=== PATIENT | female | born 1935 | race Caucasian/White ===

== ENCOUNTER → 2017-03-01 | Outpatient (CLI) | payer OTHER ==
--- NOTE | ~2017-03-01 | MY11 ---
[facility] A Service of [facility] RADIOLOGY TEXT RESULTS PATIENT: KATARZYNA MARTINEZ LOCATION: [facility] : 37 UNIT #: [id number] AGE: [address]: Elieser Hurt MD SEX: F ORDER DR: [id number] [facility] [address]. [place], [place] [address] [id number] O MR#: [id number] Acc #: [id number] NAME: KATARZYNA MARTINEZ : 1935 SEX: F STUDY DATE/TIME: 03/01/2017 12:21 UNIT: [facility] ROOM: STUDY DESCRIPTION: MY Mammogram Screening Dig Sunil Attending Physician: Elieser Hurt M.D. Ordering Physician: Elieser Hurt M.D. Primary Care Physician: Elieser Hurt M.D. MEDICAL IMAGING REPORT This report is preliminary unless electronic signature is present EXAM Bilateral digital screening mammogram with CAD 03/01/2017 HISTORY Family history of breast cancer in her mother. No personal history of breast cancer. No current complaints. COMPARISON Bilateral screening mammogram 02/27/2016, 10/18/2014 and 09/14/2012. Right breast diagnostic mammogram 11/16/2014. FINDINGS CC and MLO views were obtained of each breast utilizing digital technique and reviewed with a FDA-approved CAD device. Scattered fibroglandular densities are present bilaterally. Round markers placed over each breast denoting skin lesions. Fibroglandular pattern appears stable. No new or suspicious nodule is seen. No architectural distortion. No suspicious clustered microcalcifications. IMPRESSION 1. BIRADS 1. Negative screening mammogram. Routine screening mammogram is recommended in 1 year. BIRADS: 1 Negative. Patients over the age of 40 are entered into a reminder system with target due date for the next mammogram. A result letter will also be sent to the patient. Dictated by... Ritu Milton M.D. [facility] A Service [facility] RADIOLOGY TEXT RESULTS PATIENT: KATARZYNA MARTINEZ LOCATION: [facility] : 37 UNIT #: [id number] AGE: [address]: Elieser Hurt MD SEX: F ORDER DR: THIS IS AN ELECTRONICALLY VERIFIED REPORT Ritu Milton M.D. at 03/04/2017 8:30 AM VIOLETA/torrey TD: 03/01/2017 18:41 JOB #: [id number] MEDICAL IMAGING REPORT Page 1 of 1 COPY
== END | disposition home or self-care (01) ==
LOC: CWCC 11:34
DX: Z12.31 Encounter for screening mammogram for malignant neoplasm of breast (principal); Z80.3 Family history of malignant neoplasm of breast
CPT/HCPCS: G0202